=== PATIENT | male | born 1980 | race Caucasian/White ===

== ENCOUNTER 2017-01-18 10:10 | Emergency (ER) | payer OTHER ==
[2017-01-18] MEDS ORDERED: Adacel Vial IM ONE ×2 (10:25→10:27)
--- NOTE | 2017-01-18 10:31 | ERPHSYRPT ---
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 Triage Nursing Assessment: pt pink, warm, dry. 3cm laceration to right palm. no bleeding. pt able to move all fingers. 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 His steri stripped but it is bleeding so came to ER. Needs tetanus vaccine. No other injuries. No N/T/W. Extremities Pain Location: hand: right Allergies/Adverse Reactions: Sulfa (Sulfonamide Antibiotics) Allergy (Verified 01/18/17 10:22) Home Medications: No Reportable Medications [No Reported Medications] 01/18/17 [History] Hx Tetanus, Diphtheria Vaccination/Date Given: Yes (unknown) Hx Influenza Vaccination/Date Given: No Hx Pneumococcal Vaccination/Date Given: No Immunizations Up to Date: Yes - Review of Systems Constitutional: No Symptoms Skin: Skin Lesions (cut right hand) Neurological: No Focal Weakness, No Parasthesia - Past Medical History Pertinent Past Medical History: No - Past Surgical History Past Surgical History: No - Social History Smoking Status: Never smoker Exposure to second hand smoke: No Drug Use: none Patient Lives Alone: No - Nursing Vital Signs Nursing Vital Signs: Pain Scale Pain Intensity 0 - Physical Exam General Appearance: alert Cardiovascular/Respiratory Exam: regular rate/rhythm Hand Exam: normal ROM, laceration (3cm well approximated not bleeding on right hand thenar immenience) Neuro/Tendon Exam: normal sensation, normal motor functions Mental Status Exam: alert, oriented x 3 - Course Nursing assessment & vital signs reviewed: Yes Ordered Tests: Active Orders 24 hr Category Date Time Status Wound Care STAT Care 01/18/17 10:27 Active Medication Summary Discontinued Medications Generic Name Dose Route Start Last Admin Trade Name Freq PRN Reason Stop Dose Admin Diphtheria/Tetanus/Acell Pertussis Confirm 01/18/17 10:25 Adacel Vial Administered 01/18/17 10:26 Dose 0.5 ml IM [employer] - Progress Progress Note: 01/18/17 10:30 The cut is well approximated. Since it is 15 hours old will cleanse and reinforce with steri strips. Wound care instr given. Tetanus updated. Counseled pt/family regarding: diagnosis, need for follow-up - Departure Time of Disposition: 10:30 Departure Disposition: Home Clinical Impression: Laceration of right hand Qualifiers: Encounter type: initial encounter Foreign body presence: without foreign body Qualified Code(s): S61.411A - Laceration without foreign body of right hand, initial encounter Condition: Stable Critical Care Time: No Referrals: JUAN CARLOS KNIGHT MD [Primary Care Provider] - Instructions: Laceration Repair Steri-Strips Additional Instructions: Keep wound clean and dry. Limit activity. Hold pressure for any bleeding. Report any sign of infection right away.
[2017-01-18 10:55] VITALS: BP 147/77; PULSE 74
== END 2017-01-18 10:55 | disposition home or self-care (01) ==
LOC: ED 10:10
DX: S61.411A Laceration without foreign body of right hand, initial encounter (principal); W45.8XXA Other foreign body or object entering through skin, initial encounter; W28.XXXA Contact with powered lawn mower, initial encounter
CPT/HCPCS: 90471; 90715; 99283

== ENCOUNTER 2018-12-05 20:11 | Emergency (ER) | payer OTHER ==
--- NOTE | 2018-12-05 20:45 | ERPHSYRPT ---
- History of Present Illness Time Seen by Provider: 12/05/18 20:38 Source: patient Exam Limitations: no limitations Physician History: Pt was playing basketball one hour ago, he rolled his right ankle, developed pain and swelling of the lateral ankle, denies fall, other injury, or past injuries to his ankle. He was given Ibuprofen by his before coming. Method of Injury: twisted Occurred: just prior to arrival Quality: constant Severity of Pain-Max: moderate Severity of Pain-Current: moderate Lower Extremities Pain: ankle: right (twisted) Modifying Factors: Improves With: immobilization, movement Associated Symptoms: popping sensation Allergies/Adverse Reactions: Sulfa (Sulfonamide Antibiotics) Allergy (Verified 01/18/17 10:22) Home Medications: No Reportable Medications [No Reported Medications] 01/18/17 [History] Hx Tetanus, Diphtheria Vaccination/Date Given: Yes (unknown) Hx Influenza Vaccination/Date Given: No Hx Pneumococcal Vaccination/Date Given: No - Review of Systems Constitutional: No Symptoms Musculoskeletal: Other (right ankle pain and swelling) All Other Systems: Reviewed and Negative - Past Medical History Pertinent Past Medical History: No - Past Surgical History Past Surgical History: No - Social History Smoking Status: Never smoker Exposure to second hand smoke: No Drug Use: none Patient Lives Alone: No - Nursing Vital Signs Nursing Vital Signs: Initial Vital Signs Pulse Rate 64 12/05/18 20:37 Respiratory Rate 18 12/05/18 20:37 Blood Pressure 119/81 12/05/18 20:37 O2 Sat by Pulse Oximetry 98 12/05/18 20:37 Pain Scale Pain Intensity 5 - Physical Exam General Appearance: no apparent distress Eyes, Ears, Nose, Throat Exam: normal ENT inspection Neck Exam: normal inspection, non-tender Cardiovascular/Respiratory Exam: chest non-tender, normal breath sounds, regular rate/rhythm, heart sounds normal Gastrointestinal/Abdominal Exam: non-tender, soft Back Exam: normal inspection Ankle Exam: right ankle: pain, soft tissue tenderness, swelling (lateral ankle swollen, no deformity, or severe laxity, good distal pulses and sensation.) Foot Exam: right foot: non-tender Neuro/Tendon Exam: normal sensation, normal motor functions Mental Status Exam: alert, oriented x 3, cooperative Skin Exam: normal color, warm, dry SpO2 Interpretation: normal O2 Delivery: Room Air - Course Nursing assessment & vital signs reviewed: Yes - Radiology Exams Right Ankle X-ray Interpretation: Interpreted by me, Other (small cortical abruption of the distal fibula seen on laateral view, indicating abruption chip fracture of the anterior cortical) Ordered Tests: Active Orders 24 hr Category Date Time Status Ousmane Bandage Application -[facility] STAT Care 12/05/18 21:06 Ordered ANKLE (3 VIEWS) Stat Exams 12/05/18 20:42 Taken - Progress Progress: unchanged Counseled pt/family regarding: diagnosis, need for follow-up, rad results - Departure Departure Disposition: Home Clinical Impression: Ankle sprain Qualifiers: Encounter type: initial encounter Involved ligament of ankle: anterior talofibular ligament Laterality: right Qualified Code(s): S93.491A - Sprain of other ligament of right ankle, initial encounter Condition: Stable Critical Care Time: No Referrals: JUAN CARLOS KNIGHT MD [Primary Care Provider] - Instructions: Ankle Sprain (DC) Additional Instructions: Rest with elevated leg x 2-3 days, apply ice to swelling, and follow up with your physician next week!
[2018-12-05 21:26] VITALS: BP 125/77; PULSE 66; O2SAT 97
--- NOTE | 2018-12-06 08:58 | XRAY ---
Indication: Pain/swelling following basketball injury. Comparison: None 3 views of the right ankle demonstrates anterolateral soft tissue swelling. Lateral view demonstrates tiny fragmented spur of the distal tibia anteriorly, possible fracture in the right clinical setting. No other bony, articular, or soft tissue abnormalities.
== END 2018-12-05 21:30 | disposition home or self-care (01) ==
LOC: ED 20:11
DX: S93.491A Sprain of other ligament of right ankle, initial encounter (principal); X50.1XXA Overexertion from prolonged static or awkward postures, initial encounter; Y93.67 Activity, basketball; Y92.89 Other specified places as the place of occurrence of the external cause
CPT/HCPCS: 73610; 99283